=== PATIENT | male | born 1980 | race Caucasian/White ===

== ENCOUNTER 2016-12-19 22:40 | Emergency (ER) | payer OTHER ==
[~2016-12-19 22:40] MED LIST: ADVI200C5 PO; FAMO40TA PO; FLUO0.0121 TOP; KETOC2%T TOPICAL; TEMA30CA PO
[2016-12-19 22:44] VITALS: BP_SYST 188; BP_SYST 203; BP_DIAS 106; BP_DIAS 116; PULSE 96; RESP 16; TEMP 98.6; O2SAT 100
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
[2016-12-20] MEDS ORDERED: CLINDAMYCIN INJ 600 MG in SODIUM CHLORIDE 0.9% INJ 100 ML IV ONE (01:00)
[2016-12-20] MEDS ORDERED: SODIUM CHLOR 0.9% 1000 ML INJ 1,000 ML IV ONE (01:00)
[2016-12-20] MEDS ORDERED: ceFAZolin 2 GM PREMIX 50 ML IV ONE (01:00)
--- NOTE | 2016-12-20 02:58 | RADRPT ---
EXAM DATE/TIME: 12/20/2016 01:05 [facility] COMPARISON: No previous studies available for comparison. INDICATIONS : Fever. MEDICAL HISTORY : None. SURGICAL HISTORY : None. ENCOUNTER: Initial ACUITY: 1 day PAIN SCORE: 0/10 LOCATION: Bilateral chest FINDINGS: A single view of the chest demonstrates the lungs to be symmetrically aerated without evidence of mas s, infiltrate or effusion. The cardiomediastinal contours are unremarkable. Osseous structures are intact. CONCLUSION: Normal examination. Theo Bruner Jr., MD on December 20, 2016 at 1:37 Board Certified Radiologist. This report was verified electronically.
[2016-12-20 03:25] LABS: ALKALINE PHOSPHATASE 59 U/L (45-117); ALT (GPT) 38 U/L (12-78); ANION GAP 6 MEQ/L (5-15); AST (GOT) 28 U/L (15-37); BICARBONATE 30.3 MEQ/L (21.0-32.0); BLOOD UREA NITROGEN 12 MG/DL (7-18); CHLORIDE 104 MEQ/L (98-107); GLOMERULAR FILTRATION RATE 87 ML/MIN (>89); MAGNESIUM 2.2 MG/DL (1.5-2.5); POTASSIUM 3.8 MEQ/L (3.5-5.1); SODIUM (NA) 140 MEQ/L (136-145); TOTAL BILIRUBIN ADULT 1.8 MG/DL (0.2-1.0)
[2016-12-20 03:51] LABS: AUTOMATED NEUTROPHIL # 3.1 TH/MM3 (1.8-7.7); BASOPHIL % 0.3 % (0.0-2.0); EOSINOPHIL % 0.7 % (0.0-4.0); HEMATOCRIT 40.3 % (39.0-51.0); HEMO FLAGS DIFF FINAL; LYMPH % 33.6 % (9.0-44.0); MEAN CELL VOLUME 85.1 FL (80.0-100.0); MEAN CORPUSCULAR HEMOGLOBIN 29.9 PG (27.0-34.0); MEAN CORPUSCULAR HGB CONC 35.1 % (32.0-36.0); MONO % 14.9 % (0.0-8.0); NEUT % 50.5 % (16.0-70.0); PLATELET COUNT 180 TH/MM3 (150-450); RED BLOOD COUNT 4.73 MIL/MM3 (4.50-5.90); RED CELL DISTRIBUTION WIDTH 12.7 % (11.6-17.2); WHITE BLOOD COUNT 6.1 TH/MM3 (4.0-11.0)
[2016-12-20] MEDS ORDERED: CLIN1CAP6 PO (03:56)
[2016-12-20] MEDS ORDERED: CEPH-460 PO (03:56)
[2016-12-20 04:52] LABS: BLOOD, URINE NEG (NEG); COMMENT (UR) CULT NOT INDICATED; CULTURE IF INDICATED CULT NOT INDICATED; GLUCOSE,URINE NEG (NEG); KETONE, URINE NEG (NEG); MUCUS URINE FEW /lpf (OCC); NITRITE,URINE NEG (NEG); PH, URINE 6.5 (5.0-8.5); SQUAMOUS EPITHELIAL CELL URINE <1 /hpf (0-5); URINE COLOR YELLOW (YELLW/STRAW)
[2016-12-26] MEDS ORDERED: CEPH-460 PO (11:39)
[2017-01-04] MEDS ORDERED: OMEP40CA2 PO (17:09)
[2017-01-04] MEDS ORDERED: ALA1CRE2 TOPICAL (17:09)
== END 2016-12-20 04:30 | disposition home or self-care (01) ==
LOC: NEPC 22:40
DX: L03.019 Cellulitis of unspecified finger (principal); L73.9 Follicular disorder, unspecified; Z79.899 Other long term (current) drug therapy
CPT/HCPCS: 71010; 80053; 81001; 83605; 83690; 83735; 85025; 86140; 87040; 99284